=== PATIENT | male | born 1995 | race African-American/Black ===

== ENCOUNTER 2022-05-19 01:23 | Emergency (ER) | payer OTHER ==
[2022-05-19 01:59] VITALS: BP 129/82; PULSE 69; TEMP 98.1; BMI 42.7
[2022-05-19] MEDS ORDERED: MAG HYDROX/AL HYDROX/SIMETH 30 ML UNIT-DOSE CUP PO ONE (02:17)
[2022-05-19] MEDS ORDERED: FAMOTIDINE 20 MG/50 ML IVPB 20 MG/50 ML MG IVPB ONE ×2 (02:17→02:29)
[2022-05-19] MEDS ORDERED: ACETAMINOPHEN 1000 MG/100 ML BAG IVPB ONE (02:17)
[2022-05-19] MEDS ORDERED: ACETAMINOPHEN INJECTION 100 ML IVPB ONE (02:28)
[2022-05-19] MEDS ORDERED: MAG HYDROX/AL HYDROX/SIMETH 30 ML UNIT-DOSE CUP ONE (02:28)
[2022-05-19 02:58] LABS: BASO % 0.7 % (0-2.0); EOS % 1.9 % (0-4.5); HEMATOCRIT 45.4 % (35.4-49); HEMOGLOBIN 15.6 GM/dL (11.7-16.9); LYMPH % 21.5 % (8-40); MCH 26.7 pg (25.7-33.7); MCHC 34.4 g/dl (32.0-35.9); MEAN CELL VOLUME 77.5 fl (80-96); MEAN PLT VOLUME 8.5 fl (7.5-11.1); MONO % 8.5 % (3.8-10.2); NEUT % 67.4 % (42.8-82.8); PLATELET COUNT 261 10^3/uL (134-434); RBC 5.86 M/mm3 (4.00-5.60); RDW 15.4 % (11.9-15.9); WHITE BLOOD COUNT 14.5 K/mm3 (4.0-10.0)
[2022-05-19 03:25] LABS: ALBUMIN 3.6 g/dl (3.4-5.0); BLOOD UREA NITROGEN 12.4 mg/dL (7-18); CALCIUM 8.7 mg/dL (8.5-10.1)
[2022-05-19 03:26] LABS: MAGNESIUM 2.3 mg/dL (1.8-2.4)
[2022-05-19 03:28] LABS: CREATININE 0.8 mg/dL (0.55-1.3)
[2022-05-19 03:30] LABS: BILIRUBIN,TOTAL 0.4 mg/dL (0.2-1); TOT PROT 7.3 g/dl (6.4-8.2)
== END 2022-05-19 03:55 | disposition home or self-care (01) ==
LOC: JER 01:23
PROC: 3E0333Z Introduction of Anti-inflammatory into Peripheral Vein, Percutaneous Approach (ICD-10-PCS; principal; 2022-05-19)
PROC: 3E033GC Introduction of Other Therapeutic Substance into Peripheral Vein, Percutaneous Approach (ICD-10-PCS; 2022-05-19)
DX: R51.9 Headache, unspecified (principal)
CPT/HCPCS: 36415; 80053; 83690; 83735; 85025; 99284-25

== ENCOUNTER 2025-08-19 22:48 | Emergency (ER) | payer SELFPAY ==
[2025-08-19 23:00] VITALS: PULSE 85; RESP 18; TEMP 97.8; BMI 46.0
[2025-08-19] MEDS ORDERED: ACETAMINOPHEN 325 MG TABLET (FP) ONE (23:40)
[2025-08-19] MEDS: ACETAMINOPHEN 325 MG TABLET (FP) PO ONE (23:55)
[2025-08-20 00:25] LABS: HCV DIAGNOSTIC IN-HOUSE W/RFLX NON-REACTIVE (NONREACTIVE); HIV INTERPRETATION NEGATIVE (NEGATIVE)
[2025-08-20 00:56] VITALS: BP 110/70
== END 2025-08-20 00:56 | disposition home or self-care (01) ==
LOC: JER 22:48
DX: R06.02 Shortness of breath (principal); R51.9 Headache, unspecified; R07.9 Chest pain, unspecified
CPT/HCPCS: 36415; 86803; 87389; 87637-QW; 93005; 93010; 99284-25